=== PATIENT | male | born 1985 | race Two or more races ===

== ENCOUNTER 2017-12-05 12:12 | Emergency (ER) | payer OTHER ==
[2017-12-05 12:21] VITALS: BP 106/67
[2017-12-05] MEDS ORDERED: KETOROLAC TROMETH 60MG/2ML VIAL IM ONE (12:45)
== END 2017-12-05 13:09 | disposition home or self-care (01) ==
LOC: ER 12:12
DX: S42.021A Displaced fracture of shaft of right clavicle, initial encounter for closed fracture (principal); W18.39XA Other fall on same level, initial encounter; Y93.89 Activity, other specified; Y92.89 Other specified places as the place of occurrence of the external cause; Y99.8 Other external cause status
CPT/HCPCS: 73000; 96372; 99284; J1885